=== PATIENT | male | born 1945 | race Caucasian/White ===

== ENCOUNTER 2022-08-14 15:42 | Outpatient (CLI) | payer MEDICARE, BC | END 2022-08-14 23:59 | disposition home or self-care (01) | LOC: RAD 15:42 | PROVIDERS: ATTEND Specialist | DX: R13.12 Dysphagia, oropharyngeal phase (principal); R49.0 Dysphonia; R47.1 Dysarthria and anarthria; G20 Parkinson's disease | CPT/HCPCS: 74230 ==

== ENCOUNTER 2024-11-18 12:11 | Inpatient (IN) | payer MEDICARE, BC ==
[~2024-11-18] VITALS: Ht 177.8 cm; Wt 88.0 kg
--- NOTE | 2024-11-18 12:48 | ELECTROCARDIOGRAPH REPORT ---
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 Saman Velez Measurements Intervals [place] Rate: 57 P: 7 WI: 190 QRS: 19 QRSD: 143 T: 3 QT: 465 QTc: 453 Interpretive Statements Sinus bradycardia Right bundle branch block Borderline ST depression, lateral leads Baseline wander in lead(s) I,II,aVR,aVL Electronically Signed On 11-19-2024 6:40:[address] Saman Velez Please click the below link to view image of tracing.
[2024-11-18 13:18] LABS: BASOPHILS % (AUTO) 0.8 % (0-1); EOSINOPHILS # (AUTO) 0.2 X10'3 (0-0.9); EOSINOPHILS % (AUTO) 4.7 % (0-6); HEMATOCRIT 43.9 % (42.0-52.0); LYMPHOCYTES # (AUTO) 0.8 X10'3 (1.1-4.8); LYMPHOCYTES % (AUTO) 16.6 % (21-51); MEAN CORPUSCULAR HEMOGLOBIN 32.1 PG (27.0-31.0); MEAN CORPUSCULAR HGB CONC 34.2 g/dL (33.0-36.5); MEAN CORPUSCULAR VOLUME 93.9 FL (78-98); MEAN PLATELET VOLUME 7.9 FL (7.4-10.4); MONOCYTES # (AUTO) 0.4 X10'3 (0-0.9); MONOCYTES % (AUTO) 8.2 % (2-12); NEUTROPHILS # (AUTO) 3.2 X10'3 (1.8-7.7); NEUTROPHILS % (AUTO) 69.7 % (42-75); PLATELET COUNT 146 X10'3 (140-440); RED BLOOD COUNT 4.68 X10'6 (4.70-6.10); WHITE BLOOD COUNT 4.6 X10'3 (4.5-11.0)
--- NOTE | 2024-11-18 13:38 | RADIOLOGY REPORT ---
EXAM: DI CHEST,SINGLE VIEW Indication: CP Technique: Single frontal view of the chest was obtained Comparison: None FINDINGS: Lines and Tubes: None Lungs: No focal consolidation. Pleura: No effusion. No pneumothorax. Cardiomediastinal contours: Unremarkable Bones: No acute osseous abnormality. IMPRESSION: No acute cardiopulmonary disease.
[2024-11-18 13:44] LABS: ALANINE AMINOTRANSFERASE 17 U/L (12-78); ALBUMIN 4.3 G/DL (3.4-5.0); ALBUMIN/GLOBULIN RATIO 1.2 (1.1-1.5); ALKALINE PHOSPHATASE 86 IU/L (46-116); ASPARTATE AMINO TRANSFERASE 9 U/L (10-37); BILIRUBIN,TOTAL 0.6 MG/DL (0.1-1.0); BLOOD UREA NITROGEN 20 MG/DL (7-18); CALCIUM 9.5 MG/DL (8.5-10.1); CREATININE 0.91 MG/DL (0.60-1.10); GLUCOSE 181 MG/DL (70-104); TOTAL CARBON DIOXIDE 26.2 MMOL/L (24-32); TOTAL PROTEIN 7.9 G/DL (6.4-8.2); eCRCL 69 ML/MIN; eGFR 81 ML/MIN
[2024-11-18 13:55] LABS: PRO BRAIN NATRIURETIC PEPTIDE 34 PG/ML (0-450)
[2024-11-18 14:06] LABS: ANION GAP 10 (8-16); CHLORIDE 101 MMOL/L (99-107); POTASSIUM 4.5 MMOL/L (3.5-5.1); SODIUM 137 MMOL/L (135-145)
--- NOTE | 2024-11-18 14:06 | Physician Documentation ---
History of Present Illness ~ Chief Complaint: Mechanical Fall Stated Complaint: FALL Time Seen by MD: 12:35 Source: patient, family HPI 79-year-old male history of Parkinson's disease, diabetes, aortic aneurysm presenting for fall. He was working in his car when he stood up to get some tools he lost his balance and fell and hit the back of his head. He did not think he lost consciousness. His spouse witnessed to fall and stated that he was very confused at 1st now is slightly confused and more forgetful than his baseline. She reports that he has had multiple episodes of syncope when standing. He is currently being evaluated by Dr. Keller's office where he had event monitor and a tilt-table test performed. They are having discussions of potential aortic valve replacement and aortic aneurysm repair Medication Reconciliation Allergies: Coded Allergies: gabapentin (Verified Allergy, Unknown, 11/18/24) latex (Verified Allergy, Unknown, 11/18/24) lidocaine (Verified Allergy, Unknown, 11/18/24) Review of Systems All Other Systems at this time: Reviewed and Negative Neurological: Denies: headache Physical Exam Vital Signs: RN Vital Signs have been reviewed: Yes, Temperature: 97.8, Source: Oral, Heart Rate: 57, Respiratory Rate: 14, BP: 162/66, Pulse Oximetry: 96, Weight: 88.000 Oxygen Flow Rate: 0 Physical Exam HEENT 2 cm right occipital hematoma Extraocular motions intact Speech normal alert oriented Cranial nerves 2-12 intact No C-spine tenderness No T or L-spine tenderness back atraumatic Chest abdomen and pelvis atraumatic Extremities painless range of motion Progress Progress Note Labs independently interpreted showed no acute abnormalities Consulted hospitalist service Dr. Mendez who agrees with treatment plan and graciously accepts for admission Results/Orders Reviewed/noted all lab results: Yes Results/Orders Orders - KELSEA BRIGHT MD Chest,Single View (11/18/24 12:38) Monitor (11/18/24 12:38) Saline Lock (11/18/24 12:38) Oxygen (11/18/24 12:38) Hs Troponin I W Calculations (11/18/24 15:38) Ct Head (11/18/24 13:40) Page Hospitalist (11/18/24 14:50) Fill Out Med Reconciliation (11/18/24 14:50) Completed KELSEA Hernandez MD Chest,Single View (11/18/24 12:38) Cbc/Diff (11/18/24 12:38) PBNP (11/18/24 12:38) Electrocardiogram (11/18/24 12:38) CMP (11/18/24 12:38) Hs Troponin I W Calculations (11/18/24 12:38) Hs Troponin I W Calculations (11/18/24 14:38) Ct Head (11/18/24 13:40) Vital Signs 11/18/24 11/18/24 12:31 14:26 Temp 97.8 Pulse 57 Resp 14 16 B/P (MAP) 162/66 Pulse Ox 96 O2 Flow Rate 0 Laboratory Tests Test 11/18/24 12:51 11/18/24 14:21 White Blood Count 4.6 Red Blood Count 4.68 L Hemoglobin 15.0 Hematocrit 43.9 Mean Corpuscular Volume 93.9 Mean Corpuscular Hemoglobin 32.1 H Mean Corpuscular Hemoglobin Concent 34.2 Red Cell Distribution Width 14.0 Platelet Count 146 Mean Platelet Volume 7.9 Neutrophils (%) (Auto) 69.7 Lymphocytes (%) (Auto) 16.6 L Monocytes (%) (Auto) 8.2 Eosinophils (%) (Auto) 4.7 Basophils (%) (Auto) 0.8 Neutrophils # (Auto) 3.2 Lymphocytes # (Auto) 0.8 L Monocytes # (Auto) 0.4 Eosinophils # (Auto) 0.2 Basophils # (Auto) 0.0 CBC Comment Sodium Level 137 Potassium Level 4.5 Chloride Level 101 Carbon Dioxide Level 26.2 Anion Gap 10 Blood Urea Nitrogen 20 H Creatinine 0.91 Estimated GFR/1.73 m2 81 BUN/Creatinine Ratio 22.0 H Glucose Level 181 H Calcium Level 9.5 Total Bilirubin 0.6 Aspartate Amino Transf (AST/SGOT) 9 L Alanine Aminotransferase (ALT/SGPT) 17 Alkaline Phosphatase 86 Troponin I High Sensitivity 15 14 Pro-B-Type Natriuretic Peptide 34 Total Protein 7.9 Albumin 4.3 Globulin 3.6 Albumin/Globulin Ratio 1.2 Chemistry Comments Troponin I High Sens Percent Delta 6 Troponin I Hi Sens Absolute Change -1 EKG/XRAY/CT/US/VASC/MRI EKG : Additional Comment EKG independently interpreted by myself time 12:46 p.m. indication syncope sinus bradycardia rate 57 normal axis right bundle branch block no ST-elevation or depression Medical Decision Making Additional info obtained from: family Differential Dx:Considerations: Include: Closed head injury, Cerebral contusion, Hematoma(s) Additional Comment syncope Departure Disposition: ADMITTED INPATIENT Admitted to Inpatient Unit: to hospitalist Impression: Primary Impression: Syncope and collapse Additional Impression: Concussion Qualified Codes: S06.0X1A - Concussion with loss of consciousness of 30 minutes or less, initial encounter Additional Impression Text Patient with history of aortic valve regurgitation, aortic aneurysm, DM, Parkinson's disease presenting for recurrent syncopal episodes. Today he had a fall and fell backwards and hit the back of his head with brief loss of consciousness. He is now confused off his baseline and has no memory of the episode which is abnormal for him. His EKGs unremarkable CT head no acute abnormality blood work clear. He does however have high-risk syncope with history of aortic regurgitation and now with concussion he does warrant admission for further evaluation and management Referrals: NO PRIMARY CARE PROVIDER (PCP) Signature Scribe Signature: No scribe Attestation: No scribe KELSEA BRIGHT MD November 18, 2024 14:06
--- NOTE | 2024-11-18 14:20 | RADIOLOGY REPORT ---
EXAM: CT CT HEAD INDICATION: head trauma TECHNIQUE: CT of the head without intravenous contrast. Radiation Dose Information: CT Dose: CTDI volume is 25 mGy. Dose-length product is 250 mGy*cm The dose indicators for CT are the volume Computed Tomography (CT) Dose Index (CTDIvol) and the Dose Length Product (DLP), and are measured in units of mGy and mGy-cm, respectively. These indicators are not patient dose, but values generated from the CT scanner acquisition factors. The report includes radiation exposure data for exposures received during this examination. COMPARISON: None FINDINGS: There is no evidence of acute intracranial hemorrhage, extra-axial collection, mass effect, midline s hift, herniation or hydrocephalus. The ventricles, sulci and cisterns are age appropriate. The miller-white differentiation is intact. Patchy periventricular and subcortical white matter hypoattenuation is nonspecific but may be related to small vessel ischemic disease. The visualized paranasal sinuses and mastoid air cells are clear. The surrounding soft tissues and osseous structures are unremarkable. IMPRESSION: No acute intracranial abnormality.
[2024-11-18] MEDS ORDERED: DAPA10TA PO (15:47)
[2024-11-18] MEDS ORDERED: METF-900 PO (15:47)
[2024-11-18] MEDS ORDERED: SERT150C (15:47)
[2024-11-18] MEDS ORDERED: magnesium sulf-water 2g/50mL 50 ML IV PRN (15:50)
[2024-11-18] MEDS ORDERED: ondansetron 4mg rapidly disintigrating tab PO PRN (15:50)
[2024-11-18] MEDS ORDERED: acetaminophen 650mg rectal suppository RC PRN (15:50)
[2024-11-18] MEDS ORDERED: potassium Cl 20 mEq SR tablet PO PRN ×2 (15:50)
[2024-11-18] MEDS ORDERED: magnesium sulf-water 4G/100mL 100 ML IV PRN (15:50)
[2024-11-18] MEDS ORDERED: morphine 2 MG/ML inj. syringe IV PRN ×2 (15:50)
[2024-11-18] MEDS ORDERED: magnesium hydroxide 30ml (MOM) UD suspension PO PRN (15:50)
[2024-11-18] MEDS ORDERED: ondansetron/PF 4mg/2ml inj IV PRN (15:50)
[2024-11-18] MEDS ORDERED: magnesium Cl slow-release 64mg tablet PO PRN (15:50)
[2024-11-18] MEDS ORDERED: potassium Cl 40MEQ/1/2NS 520ml 520 ML IV PRN (15:50)
[2024-11-18] MEDS ORDERED: diphenhydrAMINE 25mg capsule PO PRN (15:50)
[2024-11-18] MEDS ORDERED: bisacodyl 10mg suppository rectal RC PRN (15:50)
[2024-11-18] MEDS ORDERED: acetaminophen 325mg tablet PO PRN ×2 (15:50)
[2024-11-18] MEDS ORDERED: mag hydrox/Alum hydrox/simeth 30ml oral suspension PO PRN (15:50)
[2024-11-18 16:29] LABS: CHOL/HDL RATIO 2.9 (0.00-4.99); CHOLESTEROL 153 MG/DL (0-200); HDL CHOLESTEROL 53 MG/DL (35-60); LDL CHOLESTEROL 86 MG/DL (50-100); TRIGLYCERIDES 109 MG/DL (20-135)
[2024-11-18 16:38] LABS: HEMOGLOBIN A1C 7.9 % (4.5-6.2)
[2024-11-18] MEDS: PERFLUTREN PROTEIN-A MICROSPHR (Optison) 0.22 MG/ML 3ML VIAL IV ONE (16:38)
[2024-11-18] MEDS: atorvastatin 10mg tablet PO SCH (17:32)
[2024-11-18] MEDS: aspirin 81mg, enteric-coated 1 TAB TABLET.DR PO SCH (17:32)
[2024-11-18] MEDS: normal saline 1000ml 1,000 ML IV SCH (17:41)
--- NOTE | 2024-11-18 17:53 | HISTORY AND PHYSICAL-Residence ---
History & Physical Providers to CC Resident Creating Document: MAURICE BOWSER RES ~ History of Present Illness Reason for Admit\\Complaint: Syncope, fall History of Present Illness Patient is a 79-year-old male with a known history of Parkinson's disease, diabetes mellitus, hypertension, and chronic recurrent falls, who was brought to the ER by EMS after a witnessed episode of unresponsiveness at home earlier today. According to his , around 10:30 a.m. today, she witnessed the patient fall to his back on the floor. He appeared rigid, with eyes wide open, and dilated pupils. He had a brief loss of consciousness lasting approximately 2 minutes, followed by confusion and altered mental status for 1-1/2-2 hours. During this episode, he exhibited rigidity in both upper and lower extremities. The patient has himself is amnesic to the event. Earlier the same morning at around 9:00 a.m., the patient experienced an unwitnessed fall while walking in the yd.. He reportedly fell while reaching out for something. He fell forward onto his left side, and did not lose consciousness, during that episode. There was no urinary incontinence reported at that time. The patient's report a longstanding history of recurrent falls over the past two years, averaging 2-3 falls per day. These falls are of two distinct types, as she adds; One simple falls; no associated confusion or incontinence which she attributes it to Parkinson's disease the others are complex falls, which are accompanied by sudden loss of consciousness without warning, followed by confusion, urinary incontinence, limb rigidity, and "freezing episodes" in the lower extremities. These events occur 2-3 times per week. The patient typically feels tired and weak later in the day after these episodes. He was previously evaluated by a neurologist and trialed on Keppra for presumed seizure-like activity. However, the medication was discontinued after one month due to perceived lack of efficacy. He was also recently evaluated at [facility], where a syncope workup was reportedly negative. - PCP; Dr. Rangel - Grill Associate; Dr. Keller - Neurologist; Dr. Mitch Rodriguez (seen once) Allergies: Coded Allergies: gabapentin (Verified Allergy, Unknown, 11/18/24) latex (Verified Allergy, Unknown, 11/18/24) lidocaine (Verified Allergy, Unknown, 11/18/24) Home Medications Home Medications Active Reported Sertraline HCl 150 Mg Capsule 1 Farxiga (Dapagliflozin Propanediol) 10 Mg Tablet 1 Tab PO DAILY Metformin ER* (Metformin HCl) 500 Mg Tab.sr.24h 2 Tab PO BID Past Surgical History Surgical History Comment Right knee replacement, back fusion L4-L5, sinus surgery, appendectomy, tonsillectomy, Past Social History Social History Comment Patient lives with his , denies smoking cigarettes, consuming alcohol, or using recreational drugs. He is ambulatory using a walker. ROS All Other Systems: Reviewed and Negative ROS As stated above in the HPI, otherwise all systems are reviewed and negative. Neurological: Denies: headache Exam Vitals: Vital Signs Date Time Temp Pulse Resp B/P (MAP) Pulse Ox O2 Delivery O2 Flow Rate FiO2 11/18/24 15:10 97.8 56 12 153/51 (85) 96 0 General Appearance: Elderly male, alert but slow to respond. A appears fatigued, no acute distress. Mildly masked facial expression noted. HEENT: Atraumatic, normocephalic, SABINO, EOMI. Normal oropharynx, moist oral mucosa. Neck: Trachea midline. Supple, normal ROM. No JVD, bruit, lymphadenopathy or masses, or other lesions. Respiratory: Chest wall is symmetric and without deformity. No signs of respiratory distress. Equal breath sounds bilaterally. No wheeze, rub, Rales or crackles. CVS: Late systolic murmur auscultated 3-4 left intercostal area, no carotid bruits GI: Periumbilical hernia palpated, soft, normal bowel sounds x4 quadrant normoactive. No guarding, no rebound or rigidity. No hepatosplenomegaly. No masses, no bruit, no flank pain bilaterally. Extremities: Intentional tremor rather than resting tremor, more prominent on right hand. Cogwheel rigidity noted in both upper and lower extremities, more pronounced on the left side. Bradykinesia evident during finger tapping and hand movements. Stooped posture, shuffling gait with reduced arm swing. Difficulty initiating gait, start hesitation and occasional freezing episode observed Skin: Intact, dry, warm, no rashes or petechia. Neuro: Speech is clear, alert and oriented x4. No sensory or motor deficit, DTRs normal. Cranial nerves II to XII intact. Psych: Normal affect, good eye contact, no apparent hallucination, normal speech. Diagnostic Data Last Recorded Lab Results: 11/18/24 1251 11/18/24 1251 Advance Care Planning Advanced Care plannin - 30 Minutes Additional Plan Assessment and plan: Patient is a 79-year-old male with a known history of Parkinson's disease, diabetes mellitus, hypertension, and chronic recurrent falls, who was brought to the ER by EMS after a witnessed episode of unresponsiveness at home earlier today. Recurrent multiple episodes of syncope: Neurogenic (Reflex) Cardiac vs Orthostatic vs Seizures vs vertebrobasilar TIA Recurrent falls with transient loss of consciousness, confusion, rigidity. Concerning for possible seizure activity, given stereotyped episodes with a LOC, postictal confusion, and rigidity. Urinary incontinence and amnesia raises concern for epileptic seizures. Could also represent Parkinson's related freezing or atypical syncope. Admitted to neuro floor with telemetry Syncope workup initiated Atorvastatin and aspirin while presumptively given for TIA Fall precautions in place EEG ordered, we will follow MRI brain, to assess for structural lesion vascular changes Parkinson's disease: Advanced stage Longstanding disease with prominent motor symptoms i.e. rigidity, bradykinesia, freezing, postural instability and cognitive slowing Home medications i.e Rytary, Doxidopa, Pramipexol and Carbidopa/levodopa reconciled Physical therapy/occupational therapy consult for gait imbalance evaluation Social service consult for caregiver support and long-term planning Patient has extreme postural instability, poor levodopa response, also reports dysphagia - maybe red flags for progressive supranuclear palsy. However, the absence of vertical gaze palsy, normal MRI, and no frontal lobe/executive dysfunction are important negative findings that make PSP less likely. 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 No history of connective tissue disorders Blood pressure control; target < 130/80 mmHg On low dose lisinopril 5 mg daily at home, resumed Metoprolol started, to reduce aortic wall stress CTA or MRA in 6-12 months to monitor progression Dr. Keller follows the patient Hypertension: On Zoloft 150 mg at home Hyperlipidemia: LDL 86 - continue atorvastatin Code status: Full code DVT prophylaxis: Heparin derikQ Maurice Bowser Internal Medicine Resident Date of Service: November 18, 2024 Billing Provider: SONNY HUNT MD, SHAMS, RES November 18, 2024 17:53
[2024-11-18] MEDS ORDERED: DROX200C2 PO (18:45)
[2024-11-18] MEDS ORDERED: DROX100C2 PO (18:45)
[2024-11-18] MEDS ORDERED: PRAM0.5T12 PO (18:46)
[2024-11-18 19:00] VITALS: BP 143/59; PULSE 64; RESP 18; TEMP 97.8; O2SAT 95
[2024-11-18] MEDS ORDERED: CARB1CAP7 PO (19:00)
[2024-11-18] MEDS: K and/or MAG REPLACEMENT MC SCH (19:27)
[2024-11-18] MEDS ORDERED: CARB1CAP3 PO (19:35)
[2024-11-18] MEDS ORDERED: DROXIDOPA 200 MG PO SCH (20:00)
[2024-11-18] MEDS ORDERED: RYTARY PO SCH (20:00)
--- NOTE | 2024-11-18 20:03 | RADIOLOGY REPORT ---
PROCEDURE: MR MRI HEAD INDICATION: syncope/fall EXAM DATE: 11/18/2024 06:28 PM COMPARISON: CT CT HEAD on DOS: 11/18/24 TECHNIQUE: MRI of the brain without intravenous contrast. FINDINGS: Diffusion weighted images of the brain demonstrate no evidence of acute infarction. There is no evidence of intracranial hemorrhage, infarct, extra-axial collection, mass effect, midli ne shift, herniation or hydrocephalus. Mild ventricular and sulcal enlargement related to mild cerebr al volume loss. Visualized paranasal sinuses and mastoid air cells are clear. Soft tissues and osseous structures ar e unremarkable. IMPRESSION: No acute intracranial abnormality.
--- NOTE | 2024-11-18 20:04 | RADIOLOGY REPORT ---
PROCEDURE: MR MRA HEAD INDICATION: syncope/fall Exam Date: 11/18/2024 06:28 PM COMPARISON: None TECHNIQUE: MRA head without intravenous contrast. 3D image postprocessing was performed on a dedicated workstation and images were used for interpretat ion and reporting. FINDINGS: MRA head: There is preserved enhancement within the bilateral distal internal carotid arteries. There is prese rved enhancement within the anterior and middle cerebral arteries. There is preserved enhancement wi thin the vertebral arteries, basilar artery, cerebellar arteries and posterior cerebral arteries. Th ere is no evidence of hemodynamically significant intracranial stenosis, proximal occlusion or aneury sm. No abnormal venous signal is seen. IMPRESSION: 1. No evidence of hemodynamically significant intracranial stenosis, proximal occlusion or aneurysm.
[2024-11-18 21:30] VITALS: BP_SYST 127; BP_SYST 139; BP_SYST 140; BP_DIAS 45; BP_DIAS 55; BP_DIAS 60; PULSE 58; PULSE 60; PULSE 65
[2024-11-18 21:54] LABS: BILIRUBIN,URINE NEGATIVE (Neg); CLARITY,URINE CLEAR (Clear); COLOR,URINE YELLOW (Yellow); GLUCOSE, URINE >=1000 mg/dl (Neg); KETONES,URINE NEGATIVE (Neg); LEUKOCYTE ESTERASE ,URINE NEGATIVE (Neg); NITRITES, URINE NEGATIVE (Neg); OCCULT BLOOD,URINE NEGATIVE (Neg); PROTEIN,URINE NEGATIVE (Neg); UROBILINOGEN,URINE 0.2 E.U/dL (0.2-1.0)
[2024-11-18 21:55] LABS: UA COLLECTION TYPE CLN CATCH MIDSTREAM
[2024-11-18] MEDS: RYTARY PO SCH ×2 (21:55)
[2024-11-18] MEDS: pramipexole 0.25mg tablet PO SCH (21:56)
[2024-11-18] MEDS: heparin, porcine 5000 units/ml vial SQ SCH (21:56)
[2024-11-18] MEDS: docusate sod 100mg capsule PO SCH (21:56)
[2024-11-18 21:59] LABS: RBC,URINE 0-2 /HPF (0-2); WBC,URINE 0-4 /HPF (0-4)
[2024-11-18 22:00] VITALS: BP_SYST 128; BP_SYST 140; BP_DIAS 57; BP_DIAS 60; PULSE 57; PULSE 58; RESP 17; RESP 20; TEMP 97.4; TEMP 97.5; O2SAT 95; O2SAT 96
[2024-11-18 22:00] LABS: BACTERIA,URINE NONE SEEN /HPF (Neg); MUCUS STRANDS FEW /LPF (Neg); SQUAMOUS EPITHELIAL CELL,UR NONE SEEN /LPF (FEW)
[2024-11-18] MEDS ORDERED: SERT50TA PO (23:16)
[2024-11-18] MEDS ORDERED: PRAV40TA3 PO (23:18)
[2024-11-18] MEDS ORDERED: OMEP40CA21 PO (23:19)
[2024-11-18] MEDS ORDERED: TAMS-55 PO (23:20)
[2024-11-18] MEDS ORDERED: DUTA0.5C36 PO (23:21)
[2024-11-18] MEDS ORDERED: CAPT25TA3 PO (23:22)
[2024-11-18] MEDS ORDERED: OMEG1CAP46 PO (23:25)
[2024-11-19 06:00] VITALS: BP_SYST 141; BP_SYST 169; BP_DIAS 67; BP_DIAS 71; PULSE 105; PULSE 76; RESP 15; RESP 20; TEMP 97.7; TEMP 97.8; O2SAT 96; O2SAT 97
[2024-11-19 06:52] LABS: EOSINOPHILS # (AUTO) 0.3 X10'3 (0-0.9); EOSINOPHILS % (AUTO) 6.8 % (0-6); HEMATOCRIT 40.6 % (42.0-52.0); LYMPHOCYTES % (AUTO) 26.4 % (21-51); MEAN CORPUSCULAR HEMOGLOBIN 32.3 PG (27.0-31.0); MEAN CORPUSCULAR HGB CONC 34.5 g/dL (33.0-36.5); MEAN CORPUSCULAR VOLUME 93.6 FL (78-98); MONOCYTES # (AUTO) 0.3 X10'3 (0-0.9); MONOCYTES % (AUTO) 8.7 % (2-12); NEUTROPHILS # (AUTO) 2.2 X10'3 (1.8-7.7); NEUTROPHILS % (AUTO) 57.1 % (42-75); PLATELET COUNT 128 X10'3 (140-440); RED BLOOD COUNT 4.34 X10'6 (4.70-6.10); RED CELL DISTRIBUTION WIDTH 13.5 % (11.5-14.5); WHITE BLOOD COUNT 3.9 X10'3 (4.5-11.0)
[2024-11-19] MEDS: metoprolol succinate 25mg (24-HOUR) SR. Tablet PO SCH (07:15)
[2024-11-19 07:19] LABS: ALANINE AMINOTRANSFERASE 8 U/L (12-78); ALBUMIN 3.6 G/DL (3.4-5.0); ALBUMIN/GLOBULIN RATIO 1.3 (1.1-1.5); ALKALINE PHOSPHATASE 71 IU/L (46-116); ANION GAP 6 (8-16); ASPARTATE AMINO TRANSFERASE 13 U/L (10-37); BILIRUBIN,TOTAL 0.6 MG/DL (0.1-1.0); BLOOD UREA NITROGEN 22 MG/DL (7-18); BUN/CREATININE RATIO 21.2 (10.0-20.0); CALCIUM 8.7 MG/DL (8.5-10.1); CHLORIDE 104 MMOL/L (99-107); CHOL/HDL RATIO 3.2 (0.00-4.99); CHOLESTEROL 139 MG/DL (0-200); CREATININE 1.04 MG/DL (0.60-1.10); GLUCOSE 179 MG/DL (70-104); HDL CHOLESTEROL 44 MG/DL (35-60); LDL CHOLESTEROL 80 MG/DL (50-100); MAGNESIUM 2.2 MG/DL (1.5-2.4); POTASSIUM 4.5 MMOL/L (3.5-5.1); SODIUM 138 MMOL/L (135-145); TOTAL CARBON DIOXIDE 28.4 MMOL/L (24-32); TOTAL PROTEIN 6.3 G/DL (6.4-8.2); TRIGLYCERIDES 124 MG/DL (20-135); eCRCL 60 ML/MIN; eGFR 69 ML/MIN
[2024-11-19] MEDS: DAPAGLIFLOZIN 10MG TABLET PO SCH (07:37)
[2024-11-19] MEDS: OMEGA-3/DHA/EPA/FISH OIL 1 EACH CAPSULE.DR PO SCH (07:37)
[2024-11-19] MEDS: pantoprazole 40mg Tablet.DR PO SCH (07:38)
[2024-11-19 08:00] VITALS: BP_SYST 152; BP_SYST 161; BP_SYST 171; BP_DIAS 73; BP_DIAS 84; BP_DIAS 88; PULSE 66; PULSE 69
[2024-11-19] MEDS: lisinopril 5mg tablet PO SCH (08:00)
[2024-11-19] MEDS ORDERED: PRAMIPEXOLE DI HCL 0.5 MG PO SCH (08:00)
[2024-11-19] MEDS ORDERED: glucagon, human recombinant 1mg kit SUBCUT PRN (08:20)
[2024-11-19] MEDS ORDERED: dextrose 50%-water 50ml dispensing syringe IV PRN ×2 (08:20)
[2024-11-19] MEDS ORDERED: DEXTROSE 15 GM of carb/4 tabs (each vial/BOTTLE has 4 tablets) PO PRN ×2 (08:20)
[2024-11-19] MEDS: DROXIDOPA 200 MG PO SCH ×2 (09:44→12:14)
[2024-11-19 10:00] VITALS: BP_SYST 122; BP_SYST 140; BP_DIAS 68; PULSE 54; PULSE 76; RESP 17; TEMP 97.7; TEMP 98.3; O2SAT 95; O2SAT 96
[2024-11-19] MEDS: polyethylene glycol 3350 17gm powd pack PO PRN (11:15)
--- NOTE | 2024-11-19 11:28 | [facility] CONSULT REPORT ---
[facility] Procedure Note [facility] Procedure Note Consult [facility] Note # Demographics Consult Type: General Neurology Patient Location: Inpatient First Name: Tien Last Name: glen Date of : 1945 Age: 79 Gender: Male Facility: [facility] Time of Initial Page (): 11/19/2024 10:20 Time of Return Call ( Time): 11/19/2024 10:20 # HPI History: Patient has a history of Parkinson's disease, and DM is presented here with recurrent falls. witnessed the fall yesterday, LOC for approximately 2 minutes, followed by confusion and altered mentation for 1-2 hours. Patient also exhibited rigidity in both upper and lower extremities. Amnesic to the event. Some falls associated with urine incontinence. Falls are backwards Given keppra outpatient but stopped because not helping with the falls. # Exam Vitals: vital signs reviewed Additional Neurologic Exam: good eye movement in all directions. # PMH-FH-SH Past Medical History: - Diabetes - Parkinson's # Data MRI: - no acute ischemia - per radiologist read mra no acute lesion in head the midbrain appearance is suggestive of a parkinsonism pathology but not diagnostic # Assessment Impression: the midbrain appearance is suggestive of a parkinsonism pathology but not diagnostic. He has full vertical gaze which is less likely if PSP. does report rem sleep behavior changes. Check for orthostatics. Check eeg. hold on standing seizure medications for now. Call back if eeg with epileptiform discharges. Syncopeal wokrup as well. # Plan Diagnostic Test: - EEG Other: - If patient has any neurological deterioration please call me back immediately - I have discussed my recommendations with the referring provider - neurology referral as outpatient # Logistics Attestation of consult completion: The patient is located at: [facility]. Facility staff participated in the visit. I performed this telemedicine visit from my offsite office utilizing interactive 2 way audio and visual telecommunication technology. Total time spent in telemedicine encounter: I spent 21 minutes reviewing clinical data and/or imaging, obtaining history, examining the patient, communicating with the onsite care team, and in preparation of this report. # Demographics First Name: Tien Last Name: glen Facility: [facility] Electronically signed at 11/19/2024 11:28 ([place] ) by Ryan Newman MD Neuro Consult Order placed for: Yes JOSEMANUEL NEWMAN MD November 19, 2024 11:28
[2024-11-19] MEDS: INSULIN LISPRO 100 UNIT/ML INSULN.PEN MULTI-DOSE SQ SCH (12:09)
--- NOTE | 2024-11-19 13:56 | VASCULAR REPORT ---
Carotid Duplex Date: 11/19/2024 11:29 AM Clinical History: syncope Comparison: None Technique: Duplex Doppler evaluation of the extracranial carotid and vertebral arteries including col or Doppler and spectral/pulsed waveform analysis was performed. Findings: RIGHT SIDE: The peak systolic velocities are 74 cm/s in the distal CCA and 91 cm/s in the proximal ICA.The ICA/CC A ratio is 1.23. The external carotid artery is patent with peak systolic velocity of 88 cm/s proximally. There is appropriate antegrade flow in the right vertebral artery. LEFT SIDE: The peak systolic velocities are 86 cm/s in the distal CCA and 87cm/s in the proximal ICA. The ICA/ CCA ratio is 1.01. The external carotid artery is patent with peak systolic velocity of 91 cm/s proximally. There is appropriate antegrade flow in the left vertebral artery. Multiphasic flow bilateral subclavian arteries. IMPRESSION: No hemodynamically significant stenosis noted in the right carotid system. No hemodynamically significant stenosis noted in the left carotid system. Reference: Radiology 2003; 229:340-346
--- NOTE | 2024-11-19 14:18 | PROGRESS NOTE- Residence ---
Progress Note - Resident Providers to CC Resident Creating Document: RENATE BOWSER RES ~ Antibiotic Timeout Antibiotic Ordered?: No Subjective Patient was seen and examined while undergoing EEG. I evaluated his vertical gaze, which was normal. Not reported any fall during hospital stay. Consulted Neurology. Objective Vital Signs Date Time Temp Pulse Resp B/P (MAP) Pulse Ox O2 Delivery O2 Flow Rate FiO2 11/19/24 08:00 Room Air 0.0 11/19/24 08:00 52 11/19/24 08:00 152/73 (99) 171/88 (115) 161/84 (109) 11/18/24 22:00 97.5 17 96 General: Elderly male, alert but slow to respond. A appears fatigued, no acute distress. Mildly masked facial expression noted. HEENT: Conjunctiva pink, Sclera clear, Mucus Membranes moist. Neck: Supple without masses and tenderness. Resp: Unlabored. Lungs clear to auscultation bilaterally. Heart: Late systolic murmur auscultated 3-4 left intercostal area, no carotid bruits Abdomen: Soft and non tender no organomegaly Extremities: Intentional tremor rather than resting tremor, more prominent on right hand. Cogwheel rigidity noted in both upper and lower extremities, more pronounced on the left side. Bradykinesia evident during finger tapping and hand movements. Stooped posture, shuffling gait with reduced arm swing. Difficulty initiating gait, start hesitation and occasional freezing episode observed Skin: Warm and Dry. Result Diagram: 11/19/2461611/19/24616 Advance Care Planning Advanced Care plannin - 30 Minutes Assessment Assessment Patient is a 79-year-old male with a known history of Parkinson's disease, diabetes mellitus, hypertension, and chronic recurrent falls, who was brought to the ER by EMS after a witnessed episode of unresponsiveness at home earlier today. Plan Plan Recurrent multiple episodes of syncope: Neurogenic (Reflex) Cardiac vs Orthostatic vs Seizures vs vertebrobasilar TIA Recurrent falls with transient loss of consciousness, confusion, rigidity. Concerning for possible seizure activity, given stereotyped episodes with a LOC, postictal confusion, and rigidity. Urinary incontinence and amnesia raises concern for epileptic seizures. Could also represent Parkinson's related freezing or atypical syncope. Continue telemetry MRA and MRI head were negative, Atorvastatin and aspirin while presumptively given for TIA Fall precautions in place EEG done, report pending Vascular Doppler done outside obtained, no stenosis Neurology consulted, evaluated the patient, waiting for the EEG report. Parkinson's disease: Advanced stage Longstanding disease with prominent motor symptoms i.e. rigidity, bradykinesia, freezing, postural instability and cognitive slowing Home medications i.e Rytary, Doxidopa, Pramipexol and Carbidopa/levodopa reconciled Physical therapy/occupational therapy consult for gait imbalance evaluation Social service consult for caregiver support and long-term planning Patient has extreme postural instability, poor levodopa response, also reports dysphagia - maybe red flags for progressive supranuclear palsy. However, the absence of vertical gaze palsy, normal MRI, and no frontal lobe/executive dysfunction are important negative findings that make PSP less likely. 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 No history of connective tissue disorders Blood pressure control; target < 130/80 mmHg On low dose lisinopril 5 mg daily at home, resumed Metoprolol started, to reduce aortic wall stress Reached out to his medical clerk, they will see the patient either inpatient or OP. CTA or MRA in 6-12 months to monitor progression Hypertension: On Zoloft 150 mg at home Hyperlipidemia: LDL 86 - continue atorvastatin Code status: Full code DVT prophylaxis: Heparin subQ DISPOSITION: Syncope workup is negative so far, if EEG does not show any findings, patient can be discharged home with outpatient follow up to his neurologist; Dr. Michael Bowser Internal Medicine Resident Date of Service: November 19, 2024 Billing Provider: SONNY HUNT MD, SHAMS, RES November 19, 2024 14:18
[2024-11-19 14:35] VITALS: BP 200/104; PULSE 81; RESP 17
--- NOTE | 2024-11-19 15:22 | CARDIOLOGY REPORT ---
APPROVED REPORT EXAM: Comprehensive 2D, Doppler, and color-flow Echocardiogram with saline. 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 178.4 cm/s AoV VTI 41.8 cm AO Peak GR. 12.7 mmHg AO Mean GR. 6 mmHg LVOT VTI 33.56 cm LVOT Peak Eleazar. 153.9 cm/s LUCIE(VTI)/BSA 3.35 cm2/m2 LUCIE (VTI) 3.35 cm2 AI P 1/2 Time 1108 ms Mitral Valve MV E Velocity 60.0 cm/s MV Peak Gr. 2 mmHg MV DECEL TIME 328 ms MV A Velocity 82.5 cm/s MV PHT 68 ms E/A Ratio 0.7 MVA (PHT) 3.24 cm2 MV VMax67.7 cm/s TDI Lateral E' P. V8.14 cm/s E/Lateral E' 7.4 Pulmonary Valve PAEDP11.47 mmHg Tricuspid Valve TR P. Velocity 187 cm/s RAP ESTIMATE 10 mmHg TR Peak Gr. 14 mmHg RVSP 24 mmHg LEFT VENTRICLE Normal LV size and wall thickness. Overall systolic function is normal. LVEF is 65-70%. RIGHT VENTRICLE RV is normal size and function. ATRIA The left atrium size is normal. Saline study was performed with 2 IV injections of 10 ccs of agitated normal saline at rest, with cough, and with valsalva. Negative saline study for right to left flow. AORTIC VALVE Trileaflet AV appears mildly sclerotic without stenosis. Moderate insufficiency. MITRAL VALVE Mild mitral annular calcification without stenosis. Trace regurgitation. TRICUSPID VALVE The tricuspid valve is normal in structure wth trace regurgitation. PULMONIC VALVE The pulmonary valve is normal in structure with trace insufficiency. GREAT VESSELS Aortic root is dilated (4.5 cm). Ascending aorta is dilated (4.97 cm). The IVC is normal in size and collapses >50% with inspiration. PERICARDIUM Normal pericardium. No effusion. Other Information Study Quality: Adequate Conclusion Normal LV size and wall thickness. Overall systolic function is normal. LVEF is 65-70%. RV is normal size and function. The left atrium size is normal. Saline study was performed with 2 IV injections of 10 ccs of agitated normal saline at rest, with cou gh, and with valsalva. Negative saline study for right to left flow. Trileaflet AV appears mildly sclerotic without stenosis. Moderate insufficiency. Mild mitral annular calcification without stenosis. Trace regurgitation. The tricuspid valve is normal in structure wth trace regurgitation. The pulmonary valve is normal in structure with trace insufficiency. Aortic root is dilated (4.5 cm). Ascending aorta is dilated (4.97 cm). Normal pericardium. No effusion.
[2024-11-19] MEDS: HYDROcodone/acetaminophen 10/325mg tab PO PRN (15:37)
--- NOTE | 2024-11-19 17:55 | PROCEDURE NOTE ---
Procedure Note Providers to CC ~ Interpretation: [place] EEG Note # Demographics Type of EEG Read: - Routine EEG - video Patient Location: Inpatient First Name: RAS Last Name: LILLIAN Date of : 1945 Age: 79 Gender: Male Facility: [facility] Time of Initial Page (Timnath ): 11/19/2024 11:29 Time of Return Call (Timnath Time): 11/19/2024 11:46 # EEG Interpretation Start Time of EEG Read (Timnath Time): 11/19/2024 11:34 Stop Time of EEG Read (Timnath ): 11/19/2024 11:55 Duration: 0h 21m Technical Details: - The EEG electrodes were placed using the standard International 10-20 system of electrode placement. Video and an accessory EKG lead were used during the course of this study. - This study was recorded using the [employer] EEG software Indication: - seizure # Description Photic Stimulation: Performed Phases Captured: - awake - drowsy Symmetry: symmetric Posterior Dominant Rhythm: - present, attenuates on eye opening 9 Hz Amplitude: normal Reactivity: yes Variability: yes Continuity: continuous # Abnormalities Stimulation: - photic stimulation does NOT cause abnormalities Epileptiform Abnormalities: - NOT present Focal Slowing: no Seizure: - NOT present # Impression Impression: normal # Clinical Correlation Clinical Correlation: A normal EEG does not exclude nor support the diagnosis of epilepsy. # Demographics First Name: RAS Last Name: LILLIAN Facility: [facility] CHANO AL MD November 19, 2024 17:55
[2024-11-19 18:00] VITALS: BP 133/40; PULSE 60; RESP 20; TEMP 97.8; O2SAT 96
[2024-11-19] MEDS ORDERED: non-formulary drug (Omeprazole (Prilosec) 0.5 CAP) PO SCH (21:00)
[2024-11-19] MEDS ORDERED: pravastatin 40mg tablet PO SCH (21:00)
[2024-11-19] MEDS: dutasteride 0.5 MG capsule PO SCH (21:13)
[2024-11-19] MEDS: tamsulosin 0.4mg capsule PO SCH (21:13)
[2024-11-19 22:00] VITALS: BP 127/49; PULSE 51; RESP 16; TEMP 97.3; O2SAT 98
[2024-11-20 04:54] VITALS: BP_SYST 100; BP_SYST 104; BP_SYST 105; BP_DIAS 37; BP_DIAS 41; BP_DIAS 49; PULSE 52; PULSE 57; PULSE 65
[2024-11-20 04:55] VITALS: BP 101/43
[2024-11-20 06:00] VITALS: BP 104/41; PULSE 50; RESP 16; TEMP 97.6; O2SAT 95
[2024-11-20 06:52] LABS: BASOPHILS % (AUTO) 0.8 % (0-1); EOSINOPHILS # (AUTO) 0.3 X10'3 (0-0.9); EOSINOPHILS % (AUTO) 6.9 % (0-6); HEMATOCRIT 40.9 % (42.0-52.0); HEMOGLOBIN 14.3 g/dl (14.0-17.9); LYMPHOCYTES # (AUTO) 1.1 X10'3 (1.1-4.8); MEAN CORPUSCULAR HEMOGLOBIN 32.5 PG (27.0-31.0); MEAN CORPUSCULAR HGB CONC 34.9 g/dL (33.0-36.5); MEAN CORPUSCULAR VOLUME 93.3 FL (78-98); MEAN PLATELET VOLUME 8.3 FL (7.4-10.4); MONOCYTES # (AUTO) 0.3 X10'3 (0-0.9); MONOCYTES % (AUTO) 7.9 % (2-12); NEUTROPHILS # (AUTO) 2.2 X10'3 (1.8-7.7); NEUTROPHILS % (AUTO) 56.4 % (42-75); PLATELET COUNT 128 X10'3 (140-440); RED BLOOD COUNT 4.39 X10'6 (4.70-6.10); RED CELL DISTRIBUTION WIDTH 13.6 % (11.5-14.5); WHITE BLOOD COUNT 3.8 X10'3 (4.5-11.0)
[2024-11-20 06:59] LABS: ALBUMIN 3.7 G/DL (3.4-5.0); ALBUMIN/GLOBULIN RATIO 1.3 (1.1-1.5); ALKALINE PHOSPHATASE 72 IU/L (46-116); ANION GAP 9 (8-16); ASPARTATE AMINO TRANSFERASE 10 U/L (10-37); BILIRUBIN,TOTAL 0.7 MG/DL (0.1-1.0); BLOOD UREA NITROGEN 24 MG/DL (7-18); BUN/CREATININE RATIO 27.3 (10.0-20.0); CALCIUM 8.7 MG/DL (8.5-10.1); CHLORIDE 104 MMOL/L (99-107); CREATININE 0.88 MG/DL (0.60-1.10); GLUCOSE 183 MG/DL (70-104); MAGNESIUM 2.1 MG/DL (1.5-2.4); PHOSPHORUS 3.9 MG/DL (2.3-4.5); POTASSIUM 4.3 MMOL/L (3.5-5.1); SODIUM 138 MMOL/L (135-145); TOTAL CARBON DIOXIDE 24.9 MMOL/L (24-32); TOTAL PROTEIN 6.6 G/DL (6.4-8.2); eCRCL 71 ML/MIN; eGFR 84 ML/MIN
[2024-11-20 07:11] LABS: ALANINE AMINOTRANSFERASE < 6 U/L (12-78)
[2024-11-20 08:00] VITALS: BP_SYST 123; BP_SYST 145; BP_SYST 153; BP_DIAS 42; BP_DIAS 48; BP_DIAS 51; PULSE 54; PULSE 70; PULSE 81; RESP 18; O2SAT 96
[2024-11-20 10:00] VITALS: BP 145/52; PULSE 53; RESP 16; TEMP 98.7; O2SAT 95
[2024-11-20] MEDS: HYDROcodone/acetaminophen 5mg/325mg tablet PO PRN (10:33)
[2024-11-20] MEDS ORDERED: METO-395 PO (10:34)
--- NOTE | 2024-11-20 11:10 | DISCHARGE SUMMARY-Residence ---
Discharge Summary Providers to CC Resident Creating Document: RENATE RIVERA, RES ~ Discharge Summary Admission Diagnosis: syncope/fall. Hospital Course DATE OF ADMISSION: November 18, 2024 DATE OF DISCHARGE: November 20, 2024 Discharge Diagnosis\\Comment: Syncope Recurrent multiple episodes of falls, combination of autonomic/posture instability of Parkinson's disease and possible seizure activity. 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) Hypertension Operations\\Procedures: EEG Consultants: Rk simon Neurology Complications: None Condition on DC: Stable New Medications: Metoprolol Succinate (Metoprolol Succinate) 25 Mg Tab.sr.24h 25 MG PO DAILY for 30 Days, #30 TAB.SR Continued Medications: Captopril (Captopril) 25 Mg Tablet 1 TAB PO Q12H for 30 Days, #60 TAB 0 Refills Carbidopa/Levodopa (Rytary ER 61.25 mg-245 mg Cap) 61.25 Mg-245 Mg Capsule.er 1 CAP PO Q6H for 30 Days, #120 CAP 0 Refills Carbidopa/Levodopa (Rytary ER 36.25 mg-145 mg Cap) 36.25 Mg-145 Mg Capsule.er 1 CAP PO Q6H for 30 Days, #90 CAP 0 Refills Dapagliflozin Propanediol (Farxiga) 10 Mg Tablet 1 TAB PO DAILY Droxidopa (Droxidopa) 100 Mg Capsule 400 MG PO WL Droxidopa (Droxidopa) 200 Mg Capsule 200 MG PO BID Dutasteride (Dutasteride) 0.5 Mg Capsule 1 CAP PO HS for 30 Days, #30 CAP 0 Refills Metformin Hcl* (Metformin ER*) 500 Mg Tab.sr.24h 2 TAB PO BID [place]-3 Fatty Acids/Fish Oil ([place] 3 1,000 mg Softgel) 300 Mg-1,000 Mg Capsule 4 CAP PO Q12H for 30 Days, #90 CAP 0 Refills WITH MEALS Omeprazole (Prilosec) 40 Mg Capsule 0.5 CAP PO HS for 30 Days, #30 CAP Pramipexole Di-Hcl (Pramipexole Dihydrochloride) 0.5 Mg Tablet 0.5 MG PO TID, TAB Pravastatin Sodium (Pravastatin Sodium) 40 Mg Tablet 1 TAB PO HS for 30 Days, #30 TAB 0 Refills Sertraline HCl (Sertraline HCl) 150 Mg Capsule 1 Tamsulosin Hcl* (Flomax*) 0.4 Mg Cap.sr.24h 1 CAP PO HS for 30 Days, #30 CAP Discharge Summary: History of present illness: Patient is a 79-year-old male with a known history of Parkinson's disease, diabetes mellitus, hypertension, and chronic recurrent falls, who was brought to the ER by EMS after a witnessed episode of unresponsiveness at home earlier today. According to his , around 10:30 a.m. today, she witnessed the patient fall to his back on the floor. He appeared rigid, with eyes wide open, and dilated pupils. He had a brief loss of consciousness lasting approximately 2 minutes, followed by confusion and altered mental status for 1-1/2-2 hours. During this episode, he exhibited rigidity in both upper and lower extremities. The patient has himself is amnesic to the event. Earlier the same morning at around 9:00 a.m., the patient experienced an unwitnessed fall while walking in the yd.. He reportedly fell while reaching out for something. He fell forward onto his left side, and did not lose consciousness, during that episode. There was no urinary incontinence reported at that time. The patient's report a longstanding history of recurrent falls over the past two years, averaging 2-3 falls per day. These falls are of two distinct types, as she adds; One simple falls; no associated confusion or incontinence which she attributes it to Parkinson's disease the others are complex falls, which are accompanied by sudden loss of consciousness without warning, followed by confusion, urinary incontinence, limb rigidity, and "freezing episodes" in the lower extremities. These events occur 2-3 times per week. The patient typically feels tired and weak later in the day after these episodes. He was previously evaluated by a neurologist and trialed on Keppra for presumed seizure-like activity. However, the medication was discontinued after one month due to intolerance. He was also recently evaluated at [facility], where a syncope workup was reportedly negative. - PCP; Dr. Rangel - [employer]ar Operator; Dr. Keller - Neurologist; Dr. Meyer [facility] course: Mr. Welsh was admitted with the current episodes of syncope. Initial differential diagnosis included neurogenic, cardiac, orthostatic, seizure related, or TIA. He was placed on telemetry, and a comprehensive syncope workup - including EKG, MRI, MRA, and carotid Doppler - was unremarkable. However, the patient history of continued recurrent falls associated with transient loss of consciousness, post event confusion, rigidity, and urine incontinence, raising concerns for seizure activity. Amnesia to the event furt her supporting the suspicion. The patient has longstanding history of advanced Parkinson's disease. Given his significant postural instability, backward falls, poor response to levodopa, and mild dysphagia, progressive supranuclear palsy was considered. However, the absence of vertical gaze palsy, normal brain MRI, and lack of frontal lobe/executive dysfunction made PSP less likely. Despite negative EEG, episode of LOC, urinary incontinence, and rigidity were more consistent with seizure activity. Neurology was consulted during hospitalization, and outpatient follow up with his neurologist (Dr Mitch Rodriguez), was recommended. The patient had a prior one month trial of Keppra, which was discontinued due to intolerance, but resumption of another class of antiseizure medications is now recommended. In conclusion, the patient appears to have two types of falls: Type 1, falls w ithout loss of consciousness, confusion, or incontinence, most likely due to postural instability and autonomic dysfunction related to Parkinson's disease. Type 2 falls, associated with LOC, rigidity, confusion, urinary incontinence, and postictal amnesia - highly suggestive of seizure activity. Discharge course: Patient is stable. He has not experienced any episodes of fall or seizure activity during hospital stay. He was discharged with instructions for strict fall precaution, medication adherence, and close outpatient Neurology follow up for ongoing seizure and Parkinson's management, including resumption of Keppra. Discharge instructions as following: We believe you experience two different types of falls. The one tab, without confusion or incontinence, is likely due to postural instability associated with Parkinson's disease. The other type, which involved loss of consciousness, urinary incontinence, and extremity rigidity, is most consistent with seizure activity - even though your EEG was negative. As discussed, EEG can have limited sensitivity. You were evaluated by neurologist during hospital stay, who recommended follow up with your outpatient neurologist, Dr. Rodriguez. Please discuss resuming Keppra with Dr. Rodriguez. Follow up with your neurologist in 1-2 weeks. Also, get the discharge summary and share it with Dr. Rodriguez. For aortic root dilation, please follow up with Dr. Keller in two weeks. Discharge medications: See above Discharge physical exam: General: Awake and Alert, no acute distress. HEENT: Conjunctiva pink, Sclera clear, Mucus Membranes moist. Neck: Supple without masses and tenderness. Resp: Unlabored. Lungs clear to auscultation bilaterally. Heart: Regular Rate and rhythm, normal S1 and S2 without murmur, rub or gallop. Abdomen: Soft and non tender no organomegaly Extremities: Intentional tremor rather than resting tremor, more prominent on right hand. Cogwheel rigidity noted in both upper and lower extremities, more pronounced on the left side. Bradykinesia evident during finger tapping and hand movements. Stooped posture, shuffling gait with reduced arm swing. Difficulty initiating gait, start hesitation and occasional freezing episode ob served Skin: Warm and Dry. Imaging studies: Carotid artery ultrasound performed on November 19, 2024: Findings: RIGHT SIDE: The peak systolic velocities are 74 cm/s in the distal CCA and 91 cm/s in the proximal ICA.The ICA/CCA ratio is 1.23. The external carotid artery is patent with peak systolic velocity of 88 cm/s pr oximally. There is appropriate antegrade flow in the right vertebral artery. LEFT SIDE: The peak systolic velocities are 86 cm/s in the distal CCA and 87cm/s in the proximal ICA. The ICA/CCA ratio is 1.01. The external carotid artery is patent with peak systolic velocity of 91 cm/s proximally. There is appropriate antegrade flow in the left vertebral artery. Multiphasic flow bilateral subclavian arteries. IMPRESSION: No hemodynamically significant stenosis noted in the right carotid system. No hemodynamically significant stenosis noted in the left carotid system. MRA head on November 18, 2024: There is preserved enhancement within the bilateral distal internal carotid arteries. There is preserved enhancement within the anterior and middle cerebral arteries. There is preserved enhancement within the vertebral arteries, basilar artery, cerebellar arteries and posterior cerebral arteries. There is no evidence of hemodynamically significant intracranial stenosis, proximal occlusion or aneurysm. No abnormal venous signal is seen. IMPRESSION: 1. No evidence of hemodynamically significant intracranial stenosis, proximal occlusion or aneurysm. Head MRI performed on November 18, 2024: FINDINGS: Diffusion weighted images of the brain demonstrate no evidence of acute infarction. There is no evidence of intracranial hemorrhage, infarct, extra-axial collection, mass effect, midline shift, herniation or hydrocephalus. Mild ventricular and sulcal enlargement related to mild cerebral volume loss. Visualized paranasal sinuses and mastoid air cells are clear. Soft tissues and osseous structures are unremarkable. IMPRESSION: No acute intracranial abnormality. Echo performed on November 19, 2024: Normal LV size and wall thickness. Overall systolic function is normal. LVEF is 65-70%. RV is normal size and function. The left atrium size is normal. Saline study was performed with 2 IV injections of 10 ccs of agitated normal saline at rest, with cough, and with valsalva. Negative saline study for right to left flow. Trileaflet AV appears mildly sclerotic without stenosis. Moderate in sufficiency. Mild mitral annular calcification without stenosis. Trace regurgitation. The tricuspid valve is normal in structure wth trace regurgitation. The pulmonary valve is normal in structure with trace insufficiency. Aortic root is dilated (4.5 cm). Ascending aorta is dilated (4.97 cm). Normal pericardium. No effusion. Head CT performed on November 18, 2024: FINDINGS: There is no evidence of acute intracranial hemorrhage, extra-axial collection, mass effect, midline shift, herniation or hydrocephalus. The ventricles, sulci and cisterns are age appropriate. The miller-white differentiation is intact. Patchy periventricular and subcortical white matter hypoattenuation is nonspecific but may be related to small vessel ischemic disease. The visualized paranasal sinuses and mastoid air cells are clear. The surrounding soft tissues and osseous structures are unremarkable. IMPRESSION: No acute intracranial abnormality *Problems/Diagnosis: (1) Syncope and collapse Status: Acute Total Time Spent on D/C: Up to 30 Minutes Date of Service: November 20, 2024 Billing Provider: LIV WAHL MD Common Visit Codes: 93521-OQA/OBS DISCH DAY >30min RENATE RIVERA, RES November 20, 2024 11:06 LIV WAHL MD November 20, 2024 19:05
== END 2024-11-20 13:40 | disposition home or self-care (01) | DRG 57 ==
LOC: ER 12:11 → ED HOLD 15:55 → ORTHO 4S 19:00
PROVIDERS: ADMIT Family Medicine; ATTEND Family Medicine
PROC: 4A00X4Z Measurement of Central Nervous Electrical Activity, External Approach (ICD-10-PCS; principal; 2024-11-19)
DX: G20.A1 Parkinson's disease without dyskinesia, without mention of fluctuations (principal); S06.0X1A Concussion with loss of consciousness of 30 minutes or less, initial encounter; R56.9 Unspecified convulsions; E11.9 Type 2 diabetes mellitus without complications; I35.1 Nonrheumatic aortic (valve) insufficiency; I10 Essential (primary) hypertension; Z91.040 Latex allergy status; E78.5 Hyperlipidemia, unspecified; Z96.651 Presence of right artificial knee joint; Z90.49 Acquired absence of other specified parts of digestive tract; Z88.8 Allergy status to other drugs, medicaments and biological substances; Z98.1 Arthrodesis status; W18.39XA Other fall on same level, initial encounter; Y93.89 Activity, other specified; Y92.89 Other specified places as the place of occurrence of the external cause; Y99.8 Other external cause status
CPT/HCPCS: 36415; 70450; 70544; 70551; 71045; 80053; 80061; 81001; 82948; 83036; 83735; 83880; 84100; 84484; 85025; 85651; 87081; 92508; 92616; 93005; 93306; 93880; 95816; 96360; 96372; 97161; 97530; 99285; G0378; J1644; J1815; J7030

== ENCOUNTER 2024-11-30 10:51 | Emergency (ER) | payer MEDICARE, BC ==
[~2024-11-30] VITALS: Ht 175.3 cm; Wt 87.4 kg
[~2024-11-30 10:51] MED LIST: CAPT25TA3 PO; CARB1CAP3 PO; CARB1CAP7 PO; DAPA10TA PO; DROX100C2 PO; DROX200C2 PO; DUTA0.5C36 PO; METF-900 PO; METO-395 PO; OMEG1CAP46 PO; OMEP40CA21 PO; PRAM0.5T12 PO; PRAV40TA3 PO; SERT150C; TAMS-55 PO
[2024-11-30 11:06] VITALS: BP 149/61; PULSE 62; RESP 16; O2SAT 97
[2024-11-30] MEDS: TETanus/Pertussis (Acell)/Diphther VAC/PF (Tdap-Adult) 0.5ml syringe IMVAC ONE (12:04)
[2024-11-30] MEDS: LIDOcaine 1% 30ml preserv. free vial SQ STA (12:04)
--- NOTE | 2024-11-30 13:06 | Physician Documentation ---
History of Present Illness General Chief Complaint: Laceration Stated Complaint: ARM LAC NO THINNERS Time Seen by MD: 11:34 History of Present Illness Initial Comments Accidental fall secondary to Parkinson's suffering a laceration to the left hand between 3-4 web space. Also suffered skin tears. No loss of consciousness. Medication Reconciliation Allergies: Coded Allergies: gabapentin (Verified Allergy, Unknown, 11/18/24) latex (Verified Allergy, Unknown, 11/18/24) lidocaine (Verified Allergy, Unknown, 11/18/24) Scheduled Captopril (Captopril), 1 TAB PO Q12H, (Reported) Carbidopa/Levodopa (Rytary ER 61.25 mg-245 mg Cap), 1 CAP PO Q6H, (Reported) Carbidopa/Levodopa (Rytary ER 36.25 mg-145 mg Cap), 1 CAP PO Q6H, (Reported) Dapagliflozin Propanediol (Farxiga), 1 TAB PO DAILY, (Reported) Droxidopa (Droxidopa), 400 MG PO WL, (Reported) Droxidopa (Droxidopa), 200 MG PO BID, (Reported) Dutasteride (Dutasteride), 1 CAP PO HS, (Reported) Metformin Hcl* (Metformin ER*), 2 TAB PO BID, (Reported) Metoprolol Succinate (Metoprolol Succinate), 25 MG PO DAILY [place]-3 Fatty Acids/Fish Oil ([place] 3 1,000 mg Softgel), 4 CAP PO Q12H, (Reported) Omeprazole (Prilosec), 0.5 CAP PO HS, (Reported) Pramipexole Di-Hcl (Pramipexole Dihydrochloride), 0.5 MG PO TID, (Reported) Pravastatin Sodium (Pravastatin Sodium), 1 TAB PO HS, (Reported) Tamsulosin Hcl* (Flomax*), 1 CAP PO HS, (Reported) Miscellaneous Medications Sertraline HCl (Sertraline HCl), 1, (Reported) Review of Systems All Other Systems at this time: Reviewed and Negative Physical Exam Physical Exam Vital Signs: RN Vital Signs have been reviewed: Yes, Temperature: 98.1, Heart Rate: 62, Respiratory Rate: 16, BP: 149/61, Pulse Oximetry: 97, Weight: 87.400 General Appearance: alert, WD/WN Head: normal inspection Face: normal inspection Pupils/EOM/Fundus: PERRLA Extremities: normal range of motion Neurologic: oriented x4, nurse first assist II-XII nml as tested Motor / Sensory: no motor deficit, no sensory deficit Psychiatric: normal mood/affect Skin: normal color, warm/dry, other (In the webspace) Lymphatic: no adenopathy Progress Results/Orders Results/Orders Completed Orders - RAS BARRIGA Tetanus/Pertuss/Diph Acell/Pf (Boostrix (11/30/24 11:45) Lidocaine 1% 30ml Vial (Xylocaine 1% Via (11/30/24 11:45) Medications Received in ER Medications (Trade) Dose Ordered Sig/Indra Route PRN Reason Start Time Stop Time Status Last Admin Dose Admin (Boostrix vaccine syringe) 0.5 ml ONCE ONCE IMVAC 11/30/24 11:45 11/30/24 11:46 DC 11/30/24 12:04 0.5 ML Vital Signs 11/30/24 11:06 Temp 98.1 Pulse 62 Resp 16 B/P (MAP) 149/61 Pulse Ox 97 Medical Decision Making Differential Diagnosis Examination history warrants closure of the webspace. Patient is grossly neurologically intact passive and active range of motion. No suspected tendon or neurovascular compromise. Please see procedure note. Patient tolerated the placement of four simple interrupted sutures of 4-0 nylon. Wound dressed and cleansed. Safely discharged to outpatient antibiotics. Departure Disposition: 01 HOME / SELF CARE / HOMELESS Impression: Primary Impression: Laceration of left hand Qualified Codes: S61.412A - Laceration without foreign body of left hand, initial encounter Condition: Improved Discharge Instructions: Laceration Care, Adult, [id number] Additional Instructions: Today while in the emergency department you had four stitches placed in your left hand. It was a devon being in you & your wifes presence talking about cars and talking about life. Please continue to be viral in safe in all you do. Have sutures removed in 10 days and wound check in three days. Thank you for visiting emergency department [facility]. Referrals: NO PRIMARY CARE PROVIDER (PCP) Prescriptions Cephalexin*Monohydrate* (Keflex*) 250 Mg Capsule 3 CAP PO BID for 7 Days, #21 CAP Prov: RAS BARRIGA 11/30/24 Education Educated: Patient Educated regarding: diagnosis, treatment Signature Scribe Signature: . Attestation: . RAS BARRIGA [facility] Nov 30, 2024 13:06
[2024-11-30] MEDS ORDERED: CEPH250T PO (13:13)
[2024-11-30 13:25] VITALS: TEMP 98.1
== END 2024-11-30 13:26 | disposition home or self-care (01) ==
LOC: ER 10:52
DX: S61.412A Laceration without foreign body of left hand, initial encounter (principal); G20.A1 Parkinson's disease without dyskinesia, without mention of fluctuations; Z88.8 Allergy status to other drugs, medicaments and biological substances; W19.XXXA Unspecified fall, initial encounter; Y93.89 Activity, other specified; Y92.89 Other specified places as the place of occurrence of the external cause; Y99.8 Other external cause status
CPT/HCPCS: 12001; 90715; 99283; A6258; A6402; A6449; G0008; Z7610; 90471

== ENCOUNTER 2024-12-07 10:43 | Emergency (ER) | payer MEDICARE, BC ==
[~2024-12-07] VITALS: Ht 175.3 cm; Wt 83.0 kg
[~2024-12-07 10:43] MED LIST changes: +CEPH250T PO
[2024-12-07 11:04] VITALS: BP 103/85; PULSE 68; RESP 15; TEMP 97; O2SAT 96
== END 2024-12-07 13:06 | disposition left against medical advice (07) ==
LOC: ER 10:43
DX: R51.9 Headache, unspecified (principal); Z53.21 Procedure and treatment not carried out due to patient leaving prior to being seen by health care provider; W19.XXXA Unspecified fall, initial encounter; Y93.89 Activity, other specified; Y92.89 Other specified places as the place of occurrence of the external cause; Y99.8 Other external cause status